=== PATIENT | female | born 1965 | race Caucasian/White ===

== ENCOUNTER 2023-09-13 10:05 | Emergency (ER) | payer OTHER, SELFPAY ==
--- NOTE | ~2023-09-13 | CT_ITS ---
EXAMINATION: CT abdomen pelvis w con DATE: 09/13/2023 11:46 INDICATION: Low abdominal pain. Blood in stool. TECHNIQUE: Computed tomography (CT) of the abdomen and pelvis was performed with 100 mL Omnipaque 350 intravenous contrast. Automated exposure control and iterative reconstruction technique were employe d. The dose-length product was 986.53 mGy-cm. COMPARISON: None. FINDINGS: The visualized portions of the lung bases demonstrate mild atelectasis. No pleural effusion . The heart size is normal. No pericardial effusion. There is a lap band in expected position. The li albert is normal. There are changes of cholecystectomy. The spleen, pancreas, adrenal glands, and kidney s are normal. There are scattered diverticula in the colon. There is mild fat stranding around the si gmoid colon, consistent with diverticulitis. There are no dilated loops of bowel. There are changes o f appendectomy. There are no pathologically enlarged lymph nodes. There is no free intraperitoneal fl uid. Aortic atherosclerosis is noted. There is lumbar levocurvature and mild spondylosis. IMPRESSION: 1. Mild sigmoid diverticulitis. No perforation or abscess. Reviewed, dictated and finalized at location A.
[2023-09-13 10:15] VITALS: BP 122/87; PULSE 60; RESP 16; TEMP 36.4; O2SAT 97
--- NOTE | 2023-09-13 10:35 | ED.GIBLEED ---
HPI - GI Bleed General Chief complaint: GI Bleed Stated complaint: abdominal pain; blood in stool Source: patient Mode of arrival: ambulatory Limitations: no limitations History of Present Illness HPI Narrative: Patient is a 58-year-old female with left lower quadrant and bilateral lower abdomen pain since yesterday. She started acutely yesterday with abdomen pain and bright red blood per rectum with mucus. She has had 4 bouts of bloody mucus stools. No upper GI complaints. patient not on blood thinners. MD complaint: gross hematochezia Onset (ago): day(s) (2) Pain Consistency: intermittent ( Four episodes) Severity: moderate Relieving factors: none Exacerbating factors: none Context: other ( patient colonoscopy 2 years ago which showed multiple polyps without cancer) Associated symptoms: abdominal pain Treatments Prior to Arrival: none Related Data Home Medications Medication Instructions Recorded Confirmed allopurinol 100 mg tablet 100 mg PO DAILY 09/13/23 09/13/23 irbesartan 150 1 tablet PO DAILY 09/13/23 09/13/23 mg-hydrochlorothiazide 12.5 mg tablet metformin 500 mg tablet,extended 500 mg PO BID 09/13/23 09/13/23 release 24 hr rosuvastatin 10 mg tablet 10 mg PO DAILY 09/13/23 09/13/23 Allergies Allergy/AdvReac Type Severity Reaction Status Date / Time Sulfa (Sulfonamide Allergy Severe Anaphylaxis Verified 09/13/23 10:18 Antibiotics) Review of Systems Review of Systems: All systems reviewed & are unremarkable except as noted in HPI and below Constitutional: Constitutional: Reports no additional constitutional complaints Eyes: Eyes: Reports no additional eye complaints ENT: Reports system reviewed and no additional complaints, except as documented Cardiovascular: Cardiovascular: Reports no additional cardiovascular complaints Respiratory: Respiratory: Reports no additional respiratory complaints Gastrointestinal: Gastrointestinal: Reports no additional gastrointestinal complaints Genitourinary: Genitourinary: Reports no additional female genitourinary complaints Musculoskeletal: Musculoskeletal: Reports no additional musculoskeletal complaints Integumentary/Breasts: Skin/Breast: Reports system reviewed and no additional complaints, except as docu Neurologic: Reports system reviewed and no additional complaints, except as documented Psychiatric: Psychiatric: Reports no additional psychiatric complaints Endocrine: Endocrine: Reports no additional endocrine complaints Hematologic/Lymphatic: Hematologic/Lymphatic: Reports no additional hematologic/lymphatic complaints Allergic/Immunologic: Allergic/Immunologic: Reports no additional allergic/immunologic complaints Exam Const: General: healthy appearing Nutritional Appearance: well nourished Orientation/consciousness: patient oriented x3 HENMT: Head: normal to inspection Ears: external ears normal Face/Nose/Sinus: Normal external nose present Eyes: Conjunctivae: conjunctivae normal Pupils: Equal, round and reactive pupils present EOM: EOMs intact bilaterally Neck: Neck: normal visual inspection Chest: Chest palpation & inspection: normal inspection of the chest Resp: Effort & Inspection: normal respiratory effort and not labored Auscultation: clear to auscultation bilaterally Cardio: Rate: regular rate Rhythm: regular rhythm Heart sounds: no murmurs GI: Inspection: non-distended GI Palp: Yes Soft to palpation, Yes Tenderness to palpation present (GI) ( Left lower quadrant and across lower abdomen bilaterally), No Guarding due to palpation present (GI), No Rigid due to palpation, No Hernia present, No Palpable mass present and Yes Rebound tenderness present ( left lower quadrant) Auscultation: bowels sounds not normal and Hypoactive bowel sounds present Rectal Exam: normal sphincter tone, Abnormal stool present, heme positive stool and No hemorrhoids Other: Gross blood on the finger after rectal exam; no rectal
[2023-09-13 11:10] LABS: Basophils Absolute Auto 0.05 K/mm3 (0.00-0.10); Basophils Percent Auto 0.5 % (0.0-1.0); Eosinophils Absolute Auto 0.16 K/mm3 (0.02-0.50); Eosinophils Percent Auto 1.6 % (1.0-6.0); Hematocrit 38.4 % (35.0-49.0); Hemoglobin 12.9 g/dL (12.0-15.0); Immature Granulocyte Absolute 0.03 K/mm3 (0.00-0.00); Immature Granulocyte Percent A 0.3 % (0.0-0.0); Lymphocytes Absolute Auto 2.28 K/mm3 (1.10-4.50); Lymphocytes Percent Auto 23.2 % (18.0-42.0); Mean Corpuscular HGB Conc 33.6 g/dL (32-36); Mean Corpuscular Hemoglobin 29.8 pg (27.0-31.0); Mean Corpuscular Volume 88.7 fL (78.0-102.0); Mean Platelet Volume 10.2 fl (9.2-11.8); Monocytes Absolute Auto 0.77 K/mm3 (0.10-0.90); Monocytes Percent Auto 7.8 % (2.0-11.0); Neutrophils Absolute Auto 6.55 K/mm3 (1.70-7.20); Neutrophils Percent Auto 66.6 % (50.0-70.0); Platelet Count Result 299 K/mm3 (150-420); Red Blood Count 4.33 M/mm3 (4.20-5.40); Red Cell Distribution Width 13.4 % (11.6-14.4); White Blood Count 9.8 K/mm3 (4.8-10.8)
[2023-09-13 11:16] LABS: Occult Blood Positive (Negative)
[2023-09-13] MEDS: SODIUM CHLORIDE 0.9% IV 1,000 ML 999 ML IV CONT (11:20)
[2023-09-13] MEDS: MORPHINE SULFATE (*CRX) 2 MG/ML INJ IV PUSH (11:22)
[2023-09-13] MEDS: PANTOPRAZOLE SODIUM IV 40 MG VIAL IV PUSH (11:23)
[2023-09-13 11:26] LABS: Partial Thromboplastin Time 25.1 Sec (23.9-30.70); Prothrombin Time 10.6 Seconds (9.50-12.1)
[2023-09-13 11:27] LABS: Alanine Aminotransferase 26 U/L (14-59); Albumin Level 3.5 g/dL (3.4-5.0); Alkaline Phosphatase 59 U/L (46-116); Anion Gap 10 mmol/L (4-12); Aspartate Amino Transferase 17 U/L (15-37); Bilirubin,Total 0.9 mg/dL (0.00-1.00); Blood Urea Nitrogen 14 mg/dL (7-18); Calcium 8.9 mg/dL (8.5-10.1); Carbon Dioxide 28 mmol/L (21-32); Chloride 105 mmol/L (98-108); Estimated CRCL calculation 55 ml/min; Estimated Glomerular Filt Rate 49; Glucose 103 mg/dL (70-99); Lipase 58 U/L (16-77); Osmolality Calculated 296 mOsm/kg (285-295); Potassium 3.4 mmol/L (3.5-5.1); Sodium 143 mmol/L (136-145); Total Protein 7.2 g/dL (6.4-8.2)
[2023-09-13 11:40] LABS: Lactic Acid Reflex 1.2 mmol/L (0.4-2.0)
[2023-09-13 11:52] VITALS: BP 113/71; PULSE 50; RESP 16; O2SAT 99
[2023-09-13] MEDS: POTASSIUM CHLORIDE 20 MEQ ER TABLET PO (12:29)
[2023-09-13] MEDS: metroNIDAZOLE 250 MG TABLET 500 MG PO (12:29)
[2023-09-13] MEDS: CIPROFLOXACIN 500 MG TAB PO (12:29)
== END 2023-09-13 12:50 | disposition home or self-care (01) ==
PROVIDERS: Emergency Provider Emergency Medicine; PCP Family Medicine
DX: K57.92 Diverticulitis of intestine, part unspecified, without perforation or abscess without bleeding (principal); Z79.84 Long term (current) use of oral hypoglycemic drugs
CPT/HCPCS: 36415; 74177; 80053; 82272; 83605; 83690; 85025; 85610; 85730; 96361; 96374; 96375; 99284; A9270; C9113; J2270; J7030; Q9967